=== PATIENT | female | born 1940 | race Caucasian/White ===

== ENCOUNTER 2017-12-01 05:53 | Day surgery (SDC) | payer MEDICARE, BC ==
[2017-11-26 10:28] LABS: BASOPHILS % (AUTO) 0.7 % (0-1); EOSINOPHILS # (AUTO) 0.2 X10'3 (0-0.9); EOSINOPHILS % (AUTO) 2.9 % (0-6); LYMPHOCYTES # (AUTO) 0.9 X10'3 (1.1-4.8); LYMPHOCYTES % (AUTO) 16.7 % (21-51); MEAN CORPUSCULAR HEMOGLOBIN 31.8 PG (27.0-31.0); MEAN CORPUSCULAR HGB CONC 34.8 % (33.0-36.5); MEAN CORPUSCULAR VOLUME 91.4 FL (78-98); MEAN PLATELET VOLUME 7.6 FL (7.4-10.4); MONOCYTES # (AUTO) 0.6 X10'3 (0-0.9); NEUTROPHILS # (AUTO) 3.9 X10'3 (1.8-7.7); NEUTROPHILS % (AUTO) 69.7 % (42-75); PRE OP HEMATOCRIT 40.3 % (35.0-45.0); PRE OP PLATELET COUNT 240 X10'3 (140-440); RED CELL DISTRIBUTION WIDTH 13.4 % (11.5-14.5)
[2017-11-26 10:29] LABS: CLARITY,URINE SLIGHTLY CLOUDY (Clear); COLOR,URINE STRAW (Yellow); GLUCOSE, URINE NEGATIVE (Neg); KETONES,URINE NEGATIVE (Neg); LEUKOCYTE ESTERASE ,URINE NEGATIVE (Neg); NITRITES, URINE NEGATIVE (Neg); OCCULT BLOOD,URINE SMALL (Neg); PH,URINE 5.5 (4.8-8.0); PROTEIN,URINE NEGATIVE (Neg); UROBILINOGEN,URINE 0.2 E.U/dL (0.2-1.0)
[2017-11-26 10:32] LABS: UA COLLECTION TYPE CLN CATCH MIDSTREAM
[2017-11-26 10:44] LABS: BACTERIA,URINE FEW /HPF (Neg); SQUAMOUS EPITHELIAL CELL,UR MODERATE /LPF (FEW)
[2017-11-26 10:44] LABS: ALBUMIN 3.7 G/DL (3.4-5.0); ALBUMIN/GLOBULIN RATIO 1.2 (1.1-1.5); ALKALINE PHOSPHATASE 79 IU/L (46-116); BLOOD UREA NITROGEN 18 MG/DL (7-18); CALCIUM 9.2 MG/DL (8.5-10.1); CHLORIDE 106 MMOL/L (99-107); PRE OP ALT 28 U/L (30-65); PRE OP ANION GAP 8 (8-16); PRE OP AST 25 U/L (10-37); PRE OP BILIRUB, TOTAL 0.7 MG/DL (0.0-1.0); PRE OP GLUCOSE 107 MG/DL (70-104); PRE OP POTASSIUM 3.8 MMOL/L (3.4-5.1); PRE OP SODIUM 144 MMOL/L (135-145); TOTAL CARBON DIOXIDE 30.5 MMOL/L (24-32); TOTAL PROTEIN 6.7 G/DL (6.4-8.2); eGFR 60 ML/MIN
[2017-11-26 10:45] LABS: RBC,URINE 0-2 /HPF (0-2); WBC,URINE 0-4 /HPF (0-4)
[~2017-12-01] VITALS: Ht 165.1 cm; Wt 67.0 kg
[2017-12-01] VITALS (15 sets, daily range): BP systolic 132–183; BP diastolic 71–99
[~2017-12-01 05:53] MED LIST: ATOR20TA PO; DOCUMENT DATE & TIME OF BETA-BLOCKER PO ONE; LEVO112T61 PO; METO50TA16 PO; OLME1TAB21 PO; ceFAZolin inj. 2,000 MG in normal saline 100ml IV soln 100 ML IV ONE; famotidine 20mg tablet PO ONE; ringers solution, lacted 1,000 ML IV SCH
[2017-12-01] MEDS ORDERED: LIDOcaine 1% (10mg/ml) 2ml vial ONE (06:04)
[2017-12-01] MEDS ORDERED: methylene blue (5mg/ml) 50mg/10ml ampul IV ONE (08:27)
[2017-12-01] MEDS ORDERED: BUPIVAcaine 0.5% inj/PF 30 ml vial ONE (08:27)
[2017-12-01] MEDS ORDERED: ondansetron/PF 4mg/2ml inj ONE (08:55)
[2017-12-01] MEDS ORDERED: sevoflurane 250ml liquid IH ONE (08:55)
[2017-12-01] MEDS ORDERED: dexamethasone 4mg/ml inj ONE (08:55)
[2017-12-01] MEDS ORDERED: propofol inj 20 ML IV ONE (09:00)
[2017-12-01] MEDS ORDERED: fentaNYL/PF 50MCG/1 ML 2ML syringe ONE (09:00)
[2017-12-01] MEDS ORDERED: midazolam 2 mg/2 ml injection ONE (09:00)
[2017-12-01] MEDS ORDERED: LIDOcaine 2% (20mg/ml) 5ml vial ONE (09:03)
[2017-12-01] MEDS ORDERED: BUPIVAcaine/PF 5 MG/ML 10ML VIAL IJ ONE (09:23)
[2017-12-01] MEDS ORDERED: ringers solution, lacted 1,000 ML IV SCH (09:32)
[2017-12-01] MEDS ORDERED: HYDROmorphone inj. 0.5 MG/0.5 ML DISP.SYRIN IV PRN (09:35)
[2017-12-01] MEDS ORDERED: ondansetron/PF 4mg/2ml inj IV PRN (09:35)
[2017-12-01] MEDS ORDERED: meperidine/PF 25mg/ml syringe IV PRN ×2 (09:35)
[2017-12-01] MEDS ORDERED: morphine 4 MG/ML inj SYRINge IV PRN ×2 (09:35)
[2017-12-01] MEDS ORDERED: fentaNYL/PF 50MCG/1 ML 2ML syringe IV PRN (09:35)
[2017-12-01] MEDS ORDERED: proCHLORperazine 10 MG/2 ml inj IV PRN (09:35)
[2017-12-01] MEDS ORDERED: glycopyrrolate 0.2mg/ml inj ONE (10:00)
[2017-12-01] MEDS ORDERED: acetaminophen w/codeine (30MG) #3 tablet PO ONE (12:00)
== END 2017-12-01 12:45 | disposition home or self-care (01) ==
LOC: PAS 05:53
PROVIDERS: ATTEND Surgery
DX: K64.8 Other hemorrhoids (principal); I10 Essential (primary) hypertension; E03.8 Other specified hypothyroidism; Z88.1 Allergy status to other antibiotic agents; Z85.828 Personal history of other malignant neoplasm of skin; Z96.653 Presence of artificial knee joint, bilateral; Z79.899 Other long term (current) drug therapy
CPT/HCPCS: 36415; 46947; 80053; 81001; 85025; 93005; A6224; A6266; A6449; J0690; J1100; J2001; J2250; J2405; J2704; J3010; J3490; J7030; J7120; 88304; A7000

== ENCOUNTER 2022-10-03 05:39 | Day surgery (SDC) | payer MEDICARE, BC ==
[2022-09-29 11:59] LABS: ALBUMIN/GLOBULIN RATIO 1.4 (1.1-1.5); ALKALINE PHOSPHATASE 46 IU/L (46-116); BLOOD UREA NITROGEN 30 MG/DL (7-18); BUN/CREATININE RATIO 33.7 (6.6-38.0); CALCIUM 8.9 MG/DL (8.5-10.1); CHLORIDE 108 MMOL/L (99-107); CREATININE 0.89 MG/DL (0.40-0.90); PRE OP ALT 23 U/L (30-65); PRE OP ANION GAP 7 (8-16); PRE OP AST 30 U/L (10-37); PRE OP BILIRUB, TOTAL 0.5 MG/DL (0.0-1.0); PRE OP GLUCOSE 118 MG/DL (70-104); PRE OP POTASSIUM 4.3 MMOL/L (3.4-5.1); PRE OP SODIUM 140 MMOL/L (135-145); TOTAL CARBON DIOXIDE 25.4 MMOL/L (24-32); TOTAL PROTEIN 6.9 G/DL (6.4-8.2); eGFR 60 ML/MIN
[2022-09-29 12:01] LABS: PRE OP PROTIME 10.3 SECONDS (9.0-12.0)
[2022-09-29 12:11] LABS: BASOPHILS # (AUTO) 0.1 X10'3 (0-0.2); EOSINOPHILS # (AUTO) 0.3 X10'3 (0-0.9); LYMPHOCYTES # (AUTO) 0.9 X10'3 (1.1-4.8); LYMPHOCYTES % (AUTO) 17.9 % (21-51); MEAN CORPUSCULAR HEMOGLOBIN 30.5 PG (27.0-31.0); MEAN CORPUSCULAR HGB CONC 32.5 g/dL (33.0-36.5); MEAN CORPUSCULAR VOLUME 93.7 FL (78-98); MEAN PLATELET VOLUME 8.5 FL (7.4-10.4); MONOCYTES # (AUTO) 0.6 X10'3 (0-0.9); NEUTROPHILS # (AUTO) 3.4 X10'3 (1.8-7.7); NEUTROPHILS % (AUTO) 65.1 % (42-75); PRE OP HEMATOCRIT 39.9 % (35.0-45.0); PRE OP PLATELET COUNT 226 X10'3 (140-440); RED BLOOD COUNT 4.26 X10'6 (4.20-5.60); RED CELL DISTRIBUTION WIDTH 14.4 % (11.5-14.5)
[~2022-10-03] VITALS: Ht 167.6 cm; Wt 53.6 kg
[2022-10-03] VITALS (8 sets, daily range): BP systolic 119–147; BP diastolic 45–89
[~2022-10-03 05:39] MED LIST changes: +ASCO-134 PO; -ATOR20TA PO; +CELE-85 PO; +CHOL50004 PO; +DOCU100C40 PO; -LEVO112T61 PO; +LEVO75TA7 PO; +METO-411 PO; -METO50TA16 PO; +MULT-1085 PO; -OLME1TAB21 PO; +OLME40TA18 PO; +ROSU40TA22 PO; +SPIR25TA5 PO; -ceFAZolin inj. 2,000 MG in normal saline 100ml IV soln 100 ML IV ONE; +cefazolin 2gm/D5W 100mL 100 ML IV ONE
[2022-10-03] MEDS ORDERED: BUPIVAcaine 0.25% w/Epi /PF 30ml vial ONE (06:37)
[2022-10-03] MEDS ORDERED: methylene blue (5mg/ml) 50mg/10ml ampul IV ONE (06:38)
[2022-10-03] MEDS ORDERED: midazolam 1 mg/ML 2ml injection ONE (07:30)
[2022-10-03] MEDS ORDERED: fentaNYL/PF 50MCG/1 ML 2ML syringe ONE (07:30)
[2022-10-03] MEDS ORDERED: gentamicin inj 250 MG in normal saline 100ml IV soln 93.75 ML IV ONE (07:35)
[2022-10-03] MEDS ORDERED: clindamycin-Cleocin 900mg/D5W 50 ML IV ONE (07:35)
[2022-10-03] MEDS ORDERED: cefazolin 2gm/D5W 100mL 100 ML IV ONE (07:35)
[2022-10-03] MEDS ORDERED: ondansetron/PF 4mg/2ml inj IV PRN (07:40)
[2022-10-03] MEDS ORDERED: morphine 4 MG/ML inj SYRINge IV PRN (07:40)
[2022-10-03] MEDS ORDERED: proCHLORperazine 10 MG/2 ml inj IV PRN (07:40)
[2022-10-03] MEDS ORDERED: ringers solution, lacted 1,000 ML IV SCH (07:40)
[2022-10-03] MEDS ORDERED: desflurane 240ml liquid inh. IH ONE (07:40)
[2022-10-03] MEDS ORDERED: morphine 2 MG/ML inj. syringe IV PRN (07:40)
[2022-10-03] MEDS ORDERED: dexamethasone sod phosphate 10mg/ml inj ONE (07:40)
[2022-10-03] MEDS ORDERED: meperidine/PF 25mg/ml syringe IV PRN ×3 (07:40)
[2022-10-03] MEDS ORDERED: propofol inj 20 ML IV ONE (07:47)
[2022-10-03] MEDS ORDERED: LIDOcaine 1%/PF 5ML 10 MG/ML VIAL ONE (07:47)
[2022-10-03] MEDS ORDERED: ePHEDrine 50MG/ML INJ. ONE (08:15)
[2022-10-03] MEDS ORDERED: BUPIVAcaine/PF 2.5 mg/ml (0.25%) 30ml vial IJ ONE (08:19)
[2022-10-03] MEDS ORDERED: ondansetron/PF 4mg/2ml inj ONE (08:54)
--- NOTE | 2022-10-03 09:12 | NUR ---
Received from OR via [facility], accompanied by Anesthesiologist and report given by CORNELL Anesthesiologist. PATIENT VERY DROWSY, NO S/S OF PAIN, V/S WNL, PIV 20G LEFT FOREARM, LEFT BREAST DRESSING C/D/I WITH CHEST BINDER. Addendum: 10/03/22 at 0925 by David Banerjee RN Amended: Links added.
--- NOTE | 2022-10-03 10:07 | NUR ---
ALL DISCHARGE CRITERIA HAS BEEN MET. VSS, PAIN AT A TOLERABLE LEVEL, ABLE TO SAFELY AMBULATE AND TRANSFER SELF. IV TAKEN OUT WITHOUT ANY COMPLICATIONS. ALL DISCHARGE INSTRUCTIONS COVERED WITH PATIENT AND ALL QUESTIONS ANSWERED. PATIENT TAKEN OUT VIA WHEELCHAIR WITH ALL BELONGINGS TO PERSONAL VEHICLE WHERE FAMILY DROVE PATIENT HOME. Addendum: 10/03/22 at 1024 by David Banerjee RN Amended: Links added.
== END 2022-10-03 10:07 | disposition home or self-care (01) ==
LOC: PAS 05:39
PROVIDERS: ATTEND Surgery
DX: C50.312 Malignant neoplasm of lower-inner quadrant of left female breast (principal); I10 Essential (primary) hypertension; E03.9 Hypothyroidism, unspecified; M19.90 Unspecified osteoarthritis, unspecified site; Z90.710 Acquired absence of both cervix and uterus; Z98.890 Other specified postprocedural states; Z79.899 Other long term (current) drug therapy; Z79.01 Long term (current) use of anticoagulants; Z96.653 Presence of artificial knee joint, bilateral; Z88.1 Allergy status to other antibiotic agents; Z85.828 Personal history of other malignant neoplasm of skin; Z87.440 Personal history of urinary (tract) infections
CPT/HCPCS: 19301; 36415; 80053; 82948; 85025; 85610; 85730; 88307; 93005; J1100; J1580; J2250; J2405; J2704; J3010; J3490; J7030; J7120; Z7506; Z7508; Z7512; 76098; 76882; A4215; A4618; A6258; A7000; Q9968; S0020

== ENCOUNTER 2023-08-29 19:23 | Emergency (ER) | payer MEDICARE, BC ==
[~2023-08-29] VITALS: Ht 160 cm; Wt 55.9 kg
[~2023-08-29 19:23] MED LIST changes: +CELE-127 PO; -CELE-85 PO; -DOCUMENT DATE & TIME OF BETA-BLOCKER PO ONE; -cefazolin 2gm/D5W 100mL 100 ML IV ONE; -famotidine 20mg tablet PO ONE; -ringers solution, lacted 1,000 ML IV SCH
[2023-08-29 19:27] VITALS: BP 132/77; PULSE 80; RESP 16; TEMP 98.2; O2SAT 97
[2023-08-29] MEDS: DOXYCYCLINE 100MG CAPSULE PO STA (19:58)
[2023-08-29] MEDS ORDERED: DOXY-457 PO (20:12)
== END 2023-08-29 20:24 | disposition home or self-care (01) ==
LOC: ER 19:23
DX: S60.411A Abrasion of left index finger, initial encounter (principal); Z88.0 Allergy status to penicillin; Z88.1 Allergy status to other antibiotic agents; Z79.899 Other long term (current) drug therapy; Z79.2 Long term (current) use of antibiotics; W55.03XA Scratched by cat, initial encounter; Y93.89 Activity, other specified; Y92.89 Other specified places as the place of occurrence of the external cause; Y99.8 Other external cause status
CPT/HCPCS: 99284

== ENCOUNTER 2024-09-14 10:55 | Inpatient (IN) | payer MEDICARE, BC ==
[~2024-09-14] VITALS: Ht 162.6 cm; Wt 77.0 kg
[~2024-09-14 10:55] MED LIST changes: -ROSU40TA22 PO; +ROSU40TA89 PO
[2024-09-14 11:22] LABS: BASOPHILS % (AUTO) 0.4 % (0-1); EOSINOPHILS % (AUTO) 0 % (0-6); HEMATOCRIT 38.7 % (35.0-45.0); HEMOGLOBIN 13.3 g/dl (12.0-16.0); LYMPHOCYTES # (AUTO) 0.3 X10'3 (1.1-4.8); LYMPHOCYTES % (AUTO) 3.1 % (21-51); MEAN CORPUSCULAR HEMOGLOBIN 33.3 PG (27.0-31.0); MEAN CORPUSCULAR HGB CONC 34.5 g/dL (33.0-36.5); MEAN CORPUSCULAR VOLUME 96.4 FL (78-98); MEAN PLATELET VOLUME 7.3 FL (7.4-10.4); MONOCYTES # (AUTO) 0.5 X10'3 (0-0.9); MONOCYTES % (AUTO) 4.4 % (2-12); NEUTROPHILS # (AUTO) 10.1 X10'3 (1.8-7.7); NEUTROPHILS % (AUTO) 92.1 % (42-75); PLATELET COUNT 216 X10'3 (140-440); RED BLOOD COUNT 4.01 X10'6 (4.20-5.60); RED CELL DISTRIBUTION WIDTH 13.5 % (11.5-14.5); WHITE BLOOD COUNT 10.9 X10'3 (4.5-11.0)
[2024-09-14 11:52] LABS: ANION GAP 11 (8-16); BILIRUBIN,TOTAL 0.9 MG/DL (0.1-1.0); BLOOD UREA NITROGEN 35 MG/DL (7-18); BUN/CREATININE RATIO 26.5 (10.0-20.0); CALCIUM 9.3 MG/DL (8.5-10.1); CHLORIDE 104 MMOL/L (99-107); CREATININE 1.32 MG/DL (0.40-0.90); GLUCOSE 169 MG/DL (70-104); SODIUM 137 MMOL/L (135-145); TOTAL CARBON DIOXIDE 21.8 MMOL/L (24-32); eCRCL 26 ML/MIN; eGFR 38 ML/MIN
[2024-09-14 11:53] LABS: ALANINE AMINOTRANSFERASE 27 U/L (12-78); ALBUMIN/GLOBULIN RATIO 1.1 (1.1-1.5); ALKALINE PHOSPHATASE 51 IU/L (46-116); ASPARTATE AMINO TRANSFERASE 57 U/L (10-37); PRO BRAIN NATRIURETIC PEPTIDE 1387 PG/ML (0-450); TOTAL PROTEIN 7.6 G/DL (6.4-8.2)
[2024-09-14 12:05] LABS: POTASSIUM 5.1 MMOL/L (3.5-5.1)
[2024-09-14 12:54] LABS: BILIRUBIN,URINE NEGATIVE (Neg); CLARITY,URINE CLEAR (Clear); COLOR,URINE YELLOW (Yellow); GLUCOSE, URINE NEGATIVE (Neg); KETONES,URINE TRACE mg/dl (Neg); LEUKOCYTE ESTERASE ,URINE NEGATIVE (Neg); NITRITES, URINE NEGATIVE (Neg); OCCULT BLOOD,URINE MODERATE (Neg); PROTEIN,URINE TRACE mg/dl (Neg); UROBILINOGEN,URINE 0.2 E.U/dL (0.2-1.0)
[2024-09-14 13:09] LABS: UA COLLECTION TYPE STRAIGHT CATH
[2024-09-14 13:12] LABS: BACTERIA,URINE FEW /HPF (Neg); MUCUS STRANDS FEW /LPF (Neg); RBC,URINE 20-50 /HPF (0-2); SQUAMOUS EPITHELIAL CELL,UR FEW /LPF (FEW); WBC,URINE 0-4 /HPF (0-4)
[2024-09-14 13:13] LABS: HYALINE CASTS 0-3 /LPF (NEGATIVE)
[2024-09-14] MEDS ORDERED: NITR100C6 PO (15:06)
[2024-09-14] MEDS: nitrofuran monohydrate/nitrofuran macrocrysal 100 MG (MacroBID) capsule PO ONE (15:27)
[2024-09-14] MEDS: CefTRIAXone/D5W-Rocephin 1gm 50 ML IV ONE (16:26)
[2024-09-14] MEDS ORDERED: potassium Cl 20 mEq SR tablet PO PRN ×2 (17:10)
[2024-09-14] MEDS ORDERED: acetaminophen 325mg tablet PO PRN ×2 (17:10)
[2024-09-14] MEDS ORDERED: ondansetron/PF 4mg/2ml inj IV PRN (17:10)
[2024-09-14] MEDS ORDERED: morphine 2 MG/ML inj. syringe IV PRN (17:10)
[2024-09-14] MEDS ORDERED: potassium Cl 40MEQ/1/2NS 520ml 520 ML IV PRN (17:10)
[2024-09-14] MEDS ORDERED: magnesium Cl slow-release 64mg tablet PO PRN (17:10)
[2024-09-14] MEDS ORDERED: magnesium sulf-water 2g/50mL 50 ML IV PRN (17:10)
[2024-09-14] MEDS ORDERED: mag hydrox/Alum hydrox/simeth 30ml oral suspension PO PRN (17:10)
[2024-09-14] MEDS ORDERED: magnesium hydroxide 30ml (MOM) UD suspension PO PRN (17:10)
[2024-09-14] MEDS ORDERED: magnesium sulf-water 4G/100mL 100 ML IV PRN (17:10)
[2024-09-14] MEDS: normal saline 1000ml 1,000 ML IV SCH (17:25)
[2024-09-14] MEDS: HYDROmorphone inj. 0.5 MG/0.5 ML DISP.SYRIN IV PRN (17:36)
[2024-09-14] MEDS ORDERED: TEMA7.5C2 PO (18:00)
[2024-09-14] MEDS: normal saline 500ml IV soln 500 ML IV ONE (19:00)
[2024-09-14] MEDS: docusate sod 100mg capsule PO SCH (20:00)
[2024-09-14] MEDS: K and/or MAG REPLACEMENT MC SCH (20:00)
[2024-09-14 20:21] LABS: CREATININE 1.23 MG/DL (0.40-0.90); OSMOLALITY 297.5 MOSM/K (280-300); POTASSIUM 4.8 MMOL/L (3.5-5.1); THYROID STIMULATING HORMONE 2.82 ulU/ml (0.34-4.50); eCRCL 28 ML/MIN; eGFR 41 ML/MIN
[2024-09-15] VITALS (12 sets, daily range): BP systolic 116–167; BP diastolic 68–88; PULSE 51–96; RESP 16–22; TEMP 97.5–98.6; O2SAT 95–98
[2024-09-15 06:41] LABS: BASOPHILS % (AUTO) 0.4 % (0-1); EOSINOPHILS % (AUTO) 0.3 % (0-6); HEMATOCRIT 32.2 % (35.0-45.0); HEMOGLOBIN 11.1 g/dl (12.0-16.0); LYMPHOCYTES # (AUTO) 0.9 X10'3 (1.1-4.8); LYMPHOCYTES % (AUTO) 10.9 % (21-51); MEAN CORPUSCULAR HEMOGLOBIN 33.5 PG (27.0-31.0); MEAN CORPUSCULAR HGB CONC 34.4 g/dL (33.0-36.5); MEAN CORPUSCULAR VOLUME 97.4 FL (78-98); MEAN PLATELET VOLUME 7.4 FL (7.4-10.4); MONOCYTES # (AUTO) 0.9 X10'3 (0-0.9); MONOCYTES % (AUTO) 10.8 % (2-12); NEUTROPHILS # (AUTO) 6.6 X10'3 (1.8-7.7); NEUTROPHILS % (AUTO) 77.6 % (42-75); PLATELET COUNT 172 X10'3 (140-440); RED BLOOD COUNT 3.31 X10'6 (4.20-5.60); RED CELL DISTRIBUTION WIDTH 13.6 % (11.5-14.5); WHITE BLOOD COUNT 8.5 X10'3 (4.5-11.0)
[2024-09-15 06:57] LABS: ALANINE AMINOTRANSFERASE 25 U/L (12-78); ALBUMIN 3.1 G/DL (3.4-5.0); ALBUMIN/GLOBULIN RATIO 1.1 (1.1-1.5); ALKALINE PHOSPHATASE 39 IU/L (46-116); ANION GAP 7 (8-16); ASPARTATE AMINO TRANSFERASE 58 U/L (10-37); BILIRUBIN,TOTAL 0.6 MG/DL (0.1-1.0); BLOOD UREA NITROGEN 31 MG/DL (7-18); BUN/CREATININE RATIO 30.1 (10.0-20.0); CHLORIDE 108 MMOL/L (99-107); CREATININE 1.03 MG/DL (0.40-0.90); GLUCOSE 96 MG/DL (70-104); MAGNESIUM 1.7 MG/DL (1.5-2.4); POTASSIUM 4.3 MMOL/L (3.5-5.1); SODIUM 140 MMOL/L (135-145); TOTAL CARBON DIOXIDE 24.6 MMOL/L (24-32); TOTAL PROTEIN 5.9 G/DL (6.4-8.2); eCRCL 34 ML/MIN; eGFR 51 ML/MIN
[2024-09-15] MEDS: levoTHYROXINE 75mcg tablet PO SCH (09:47)
[2024-09-15] MEDS: metoprolol succinate 25mg (24-HOUR) SR. Tablet PO SCH (10:20)
[2024-09-15] MEDS: spironolactone 25 MG tablet PO SCH (10:21)
[2024-09-15] MEDS: atorvastatin 20mg tablet PO SCH (10:21)
[2024-09-15] MEDS: cholecalciferol (vitamin D3) 1,000 unit (25mcg) tablet PO SCH (10:22)
[2024-09-15] MEDS: losartan 50mg tablet PO SCH (10:22)
[2024-09-15] MEDS: CefTRIAXone/D5W-Rocephin 1gm 50 ML IV SCH (11:04)
[2024-09-15] MEDS ORDERED: PERFLUTREN PROTEIN-A MICROSPHR (Optison) 0.22 MG/ML 3ML VIAL IV ONE (12:25)
[2024-09-16 02:00] VITALS: BP 177/95; PULSE 66; RESP 19; TEMP 97.4; O2SAT 97
[2024-09-16 05:28] LABS: BASOPHILS % (AUTO) 0.5 % (0-1); EOSINOPHILS # (AUTO) 0.1 X10'3 (0-0.9); EOSINOPHILS % (AUTO) 1.3 % (0-6); HEMATOCRIT 37.7 % (35.0-45.0); HEMOGLOBIN 12.8 g/dl (12.0-16.0); LYMPHOCYTES # (AUTO) 0.8 X10'3 (1.1-4.8); MEAN CORPUSCULAR HEMOGLOBIN 33.2 PG (27.0-31.0); MEAN CORPUSCULAR HGB CONC 34.1 g/dL (33.0-36.5); MEAN CORPUSCULAR VOLUME 97.3 FL (78-98); MEAN PLATELET VOLUME 7.3 FL (7.4-10.4); MONOCYTES # (AUTO) 0.7 X10'3 (0-0.9); MONOCYTES % (AUTO) 8.3 % (2-12); NEUTROPHILS # (AUTO) 6.8 X10'3 (1.8-7.7); NEUTROPHILS % (AUTO) 79.9 % (42-75); PLATELET COUNT 205 X10'3 (140-440); RED BLOOD COUNT 3.87 X10'6 (4.20-5.60); RED CELL DISTRIBUTION WIDTH 13.7 % (11.5-14.5); WHITE BLOOD COUNT 8.5 X10'3 (4.5-11.0)
[2024-09-16 05:52] LABS: ALANINE AMINOTRANSFERASE 32 U/L (12-78); ALBUMIN 3.6 G/DL (3.4-5.0); ALBUMIN/GLOBULIN RATIO 1.1 (1.1-1.5); ALKALINE PHOSPHATASE 50 IU/L (46-116); ANION GAP 8 (8-16); ASPARTATE AMINO TRANSFERASE 70 U/L (10-37); BILIRUBIN,TOTAL 0.8 MG/DL (0.1-1.0); BLOOD UREA NITROGEN 31 MG/DL (7-18); BUN/CREATININE RATIO 27.4 (10.0-20.0); CALCIUM 8.2 MG/DL (8.5-10.1); CHLORIDE 106 MMOL/L (99-107); CREATININE 1.13 MG/DL (0.40-0.90); GLUCOSE 96 MG/DL (70-104); MAGNESIUM 1.9 MG/DL (1.5-2.4); POTASSIUM 4.4 MMOL/L (3.5-5.1); SODIUM 139 MMOL/L (135-145); TOTAL CARBON DIOXIDE 24.9 MMOL/L (24-32); TOTAL PROTEIN 6.8 G/DL (6.4-8.2); eCRCL 31 ML/MIN; eGFR 46 ML/MIN
[2024-09-16 08:00] VITALS: BP_SYST 163; BP_SYST 169; BP_DIAS 101; BP_DIAS 80; PULSE 63; RESP 20; O2SAT 96
[2024-09-16] MEDS ORDERED: docusate sod 100mg capsule PO SCH (08:00)
[2024-09-16 18:00] VITALS: BP 165/87; PULSE 71; RESP 15; TEMP 97; O2SAT 97
[2024-09-16 20:00] VITALS: BP_SYST 156; BP_SYST 165; BP_DIAS 87; BP_DIAS 96; PULSE 71; PULSE 72; RESP 15; O2SAT 97
[2024-09-16 22:00] VITALS: BP 128/74; PULSE 62; RESP 15; TEMP 97.4; O2SAT 92
[2024-09-17 02:00] VITALS: BP 155/86; PULSE 60; RESP 14; TEMP 97.2; O2SAT 96
[2024-09-17 06:00] VITALS: BP 139/73; PULSE 63; RESP 18; TEMP 97.7; O2SAT 96
[2024-09-17 06:00] LABS: BASOPHILS # (AUTO) 0.1 X10'3 (0-0.2); BASOPHILS % (AUTO) 0.8 % (0-1); EOSINOPHILS # (AUTO) 0.2 X10'3 (0-0.9); EOSINOPHILS % (AUTO) 2.6 % (0-6); HEMATOCRIT 32.5 % (35.0-45.0); HEMOGLOBIN 11.4 g/dl (12.0-16.0); LYMPHOCYTES # (AUTO) 0.8 X10'3 (1.1-4.8); LYMPHOCYTES % (AUTO) 11.1 % (21-51); MEAN CORPUSCULAR HEMOGLOBIN 33.5 PG (27.0-31.0); MEAN CORPUSCULAR HGB CONC 35.1 g/dL (33.0-36.5); MEAN CORPUSCULAR VOLUME 95.4 FL (78-98); MONOCYTES # (AUTO) 0.7 X10'3 (0-0.9); MONOCYTES % (AUTO) 9.4 % (2-12); NEUTROPHILS # (AUTO) 5.3 X10'3 (1.8-7.7); NEUTROPHILS % (AUTO) 76.1 % (42-75); PLATELET COUNT 181 X10'3 (140-440); RED CELL DISTRIBUTION WIDTH 13.1 % (11.5-14.5)
[2024-09-17 06:31] LABS: ALANINE AMINOTRANSFERASE 26 U/L (12-78); ALBUMIN 2.9 G/DL (3.4-5.0); ALKALINE PHOSPHATASE 45 IU/L (46-116); ANION GAP 9 (8-16); ASPARTATE AMINO TRANSFERASE 50 U/L (10-37); BILIRUBIN,TOTAL 0.9 MG/DL (0.1-1.0); BLOOD UREA NITROGEN 21 MG/DL (7-18); BUN/CREATININE RATIO 25.3 (10.0-20.0); CALCIUM 8.1 MG/DL (8.5-10.1); CHLORIDE 108 MMOL/L (99-107); CREATININE 0.83 MG/DL (0.40-0.90); GLUCOSE 87 MG/DL (70-104); MAGNESIUM 1.7 MG/DL (1.5-2.4); POTASSIUM 3.9 MMOL/L (3.5-5.1); SODIUM 139 MMOL/L (135-145); TOTAL CARBON DIOXIDE 21.6 MMOL/L (24-32); TOTAL PROTEIN 5.8 G/DL (6.4-8.2); eCRCL 42 ML/MIN; eGFR 65 ML/MIN
[2024-09-17 08:00] VITALS: BP_SYST 129; BP_SYST 133; BP_SYST 143; BP_DIAS 73; BP_DIAS 80; BP_DIAS 86; PULSE 100; PULSE 101; PULSE 90; RESP 18; O2SAT 96
[2024-09-17 09:14] VITALS: BP 135/66; PULSE 89
[2024-09-17 11:00] VITALS: BP 135/66; PULSE 78; RESP 16; TEMP 97.7; O2SAT 93
[2024-09-17 15:00] VITALS: BP 151/80; PULSE 65; RESP 14; TEMP 97.5; O2SAT 97
== END 2024-09-17 17:00 | DRG 689 ==
LOC: ER 10:55 → ED HOLD 17:01 → PCU 3S 09-15 01:10
PROVIDERS: ADMIT Family Medicine; ATTEND Family Medicine
PROC: 4A00X4Z Measurement of Central Nervous Electrical Activity, External Approach (ICD-10-PCS; principal; 2024-09-16)
DX: N30.91 Cystitis, unspecified with hematuria (principal); G93.41 Metabolic encephalopathy; N17.0 Acute kidney failure with tubular necrosis; J98.11 Atelectasis; E86.0 Dehydration; E03.9 Hypothyroidism, unspecified; I10 Essential (primary) hypertension; R00.1 Bradycardia, unspecified; Z96.653 Presence of artificial knee joint, bilateral; Z66 Do not resuscitate; N32.89 Other specified disorders of bladder; K57.30 Diverticulosis of large intestine without perforation or abscess without bleeding; K80.20 Calculus of gallbladder without cholecystitis without obstruction; Z79.899 Other long term (current) drug therapy; Z88.0 Allergy status to penicillin; Z88.1 Allergy status to other antibiotic agents; Z85.3 Personal history of malignant neoplasm of breast
CPT/HCPCS: 36415; 70450; 70544; 70551; 71045; 74176; 80053; 81001; 82565; 83735; 83880; 83930; 84132; 84443; 84484; 85025; 87081; 87088; 92508; 92616; 93005; 93306; 93880; 95816; 97116; 97161; 97530; 99285; C1758; G0378; J0696; J1171; J7030; J7040

== ENCOUNTER 2024-10-26 21:16 | Emergency (ER) | payer MEDICARE, BC ==
[~2024-10-26] VITALS: Ht 167.6 cm; Wt 51.0 kg
[~2024-10-26 21:16] MED LIST changes: -ASCO-134 PO; -CELE-127 PO; +MELA3TAB70 PO; -MULT-1085 PO; -SPIR25TA5 PO
[2024-10-26 21:21] VITALS: PULSE 77; RESP 18; O2SAT 98
[2024-10-26 23:33] VITALS: BP 162/96
[2024-10-27 01:41] LABS: BASOPHILS # (AUTO) 0.1 X10'3 (0-0.2); BASOPHILS % (AUTO) 0.6 % (0-1); EOSINOPHILS % (AUTO) 0.4 % (0-6); HEMATOCRIT 31.9 % (35.0-45.0); HEMOGLOBIN 10.8 g/dl (12.0-16.0); LYMPHOCYTES # (AUTO) 0.6 X10'3 (1.1-4.8); MEAN CORPUSCULAR HEMOGLOBIN 32.2 PG (27.0-31.0); MEAN CORPUSCULAR HGB CONC 33.8 g/dL (33.0-36.5); MEAN CORPUSCULAR VOLUME 95.2 FL (78-98); MEAN PLATELET VOLUME 6.9 FL (7.4-10.4); NEUTROPHILS # (AUTO) 8.1 X10'3 (1.8-7.7); PLATELET COUNT 321 X10'3 (140-440); RED BLOOD COUNT 3.35 X10'6 (4.20-5.60); RED CELL DISTRIBUTION WIDTH 14.4 % (11.5-14.5); WHITE BLOOD COUNT 9.8 X10'3 (4.5-11.0)
[2024-10-27 01:49] LABS: ALBUMIN 3.4 G/DL (3.4-5.0); ANION GAP 7 (8-16); BLOOD UREA NITROGEN 19 MG/DL (7-18); BUN/CREATININE RATIO 11.3 (10.0-20.0); CALCIUM 8.7 MG/DL (8.5-10.1); CHLORIDE 101 MMOL/L (99-107); CREATININE 1.68 MG/DL (0.40-0.90); GLUCOSE 111 MG/DL (70-104); POTASSIUM 5.5 MMOL/L (3.5-5.1); SODIUM 132 MMOL/L (135-145); TOTAL CARBON DIOXIDE 24.3 MMOL/L (24-32); eCRCL 19 ML/MIN; eGFR 29 ML/MIN
[2024-10-27] MEDS: LIDOcaine 2% Viscous 15ml cup MM ONE (02:08)
[2024-10-27] MEDS: bisacodyl 5mg tablet.DR PO ONE (03:12)
[2024-10-27] MEDS: normal saline 1000ML IV soln IVB ONE (03:12)
[2024-10-27 03:47] VITALS: TEMP 97.8
== END 2024-10-27 05:17 | disposition home or self-care (01) ==
LOC: ER 21:17
DX: K59.00 Constipation, unspecified (principal); E86.0 Dehydration; Z85.3 Personal history of malignant neoplasm of breast; Z88.0 Allergy status to penicillin
CPT/HCPCS: 36415; 80048; 85025; 96360; 99284; J7030